=== PATIENT | male | born 1965 | race Caucasian/White ===

== ENCOUNTER 2017-01-19 19:11 | Emergency (ER) | payer OTHER ==
[~2017-01-19] VITALS: Ht 167.6 cm; Wt 106.6 kg
[2017-01-19] MEDS ORDERED: PERCOCET 5-3251 EACH PO (22:58)
[2017-01-19] MEDS ORDERED: FLOMAX0.4 MG PO (22:58)
== END 2017-01-19 23:23 | disposition home or self-care (01) ==
LOC: ED 19:11
DX: N20.2 Calculus of kidney with calculus of ureter (principal)
CPT/HCPCS: 74176; 81001; 96361; 96374; 96375; 99284; J1170; J1885; J2405; J7030